=== PATIENT | female | born 1945 | race Caucasian/White ===

== ENCOUNTER → 2023-05-23 06:21 | Day surgery (SDC) | payer OTHER, SELFPAY | LOC: GI 06:21 | PROVIDERS: ATTENDING PHYSICIAN Specialist | DX: K29.70 Gastritis, unspecified, without bleeding (principal); K25.9 Gastric ulcer, unspecified as acute or chronic, without hemorrhage or perforation; Z87.19 Personal history of other diseases of the digestive system; Z87.11 Personal history of peptic ulcer disease | CPT/HCPCS: 43239; 88305 ==

== ENCOUNTER → 2023-07-02 06:30 | Day surgery (SDC) | payer OTHER, SELFPAY | LOC: GI 06:30 | PROVIDERS: ATTENDING PHYSICIAN Specialist | DX: Z12.11 Encounter for screening for malignant neoplasm of colon (principal); R19.5 Other fecal abnormalities; K64.8 Other hemorrhoids; K57.30 Diverticulosis of large intestine without perforation or abscess without bleeding; D12.3 Benign neoplasm of transverse colon | CPT/HCPCS: 45385; 88305 ==

== ENCOUNTER → 2023-09-02 06:29 | Day surgery (SDC) | payer OTHER, SELFPAY | LOC: GI 06:29 | PROVIDERS: ATTENDING PHYSICIAN Specialist | DX: K29.70 Gastritis, unspecified, without bleeding (principal); K20.90 Esophagitis, unspecified without bleeding; K25.9 Gastric ulcer, unspecified as acute or chronic, without hemorrhage or perforation; K25.3 Acute gastric ulcer without hemorrhage or perforation; K31.89 Other diseases of stomach and duodenum | CPT/HCPCS: 43239; 88305; 88342 ==

== ENCOUNTER 2024-04-28 06:19 | Day surgery (SDC) | payer OTHER, SELFPAY | END 2024-04-28 10:09 | disposition home or self-care (01) | LOC: GI 06:19 | PROVIDERS: ATTENDING PHYSICIAN Specialist; FAMILY PHYSICIAN Family Medicine | DX: K25.7 Chronic gastric ulcer without hemorrhage or perforation (principal); K22.70 Barrett's esophagus without dysplasia; K29.60 Other gastritis without bleeding; K25.3 Acute gastric ulcer without hemorrhage or perforation | CPT/HCPCS: 43239; 88305; 88342 ==